=== PATIENT | female | born 1960 | race Caucasian/White ===

== ENCOUNTER → 2018-10-22 | Outpatient (CLI) | payer BC ==
--- NOTE | 2018-10-22 10:13 | US ---
EXAMINATION TYPE: US kidneys/renal and bladder DATE OF EXAM: 10/22/2018 COMPARISON: CT abdomen and pelvis 2006 CLINICAL HISTORY: N18.3 chronic kidney ds R94.4 abnormal kidney. abnormal renal functions, large body habitus EXAM MEASUREMENTS: Right Kidney: 8.9 x 4.6 x 5.3 cm Left Kidney: 10.1 x 4.7 x 5.9 cm Right Kidney: smaller in size Left Kidney: wnl Bladder: wnl Bilateral Jets seen: yes There is no evidence for hydronephrosis at this point in time. No nephrolithiasis is seen. No wilfrid s are identified. The urinary bladder is not greatly distended. Bilateral ureteral jets are seen. Suboptimal study without gross hydronephrosis identified bilaterally IMPRESSION: Suboptimal related to patient's body habitus, no gross hydronephrosis is seen.
== END | disposition home or self-care (01) ==
LOC: RADUSWWP 09:42
PROVIDERS: ATTEND Family Medicine
DX: N18.3 Chronic kidney disease, stage 3 (moderate) (principal); R94.4 Abnormal results of kidney function studies; Z88.2 Allergy status to sulfonamides; Z88.8 Allergy status to other drugs, medicaments and biological substances
CPT/HCPCS: 76770